=== PATIENT | female | born 1975 | race Caucasian/White ===

== ENCOUNTER 2016-07-07 21:01 | Emergency (ER) | payer OTHER ==
--- NOTE | 2016-07-07 21:42 | ERNOTE ---
Dyspnea - General Presenting Symptoms: shortness of breath Time Seen by Provider: 07/07/16 21:23 Source: patient Exam Limitations: no limitations - Immun/Allergies/Home Medications Immunizations: IMMUNIZATION HX Immunizations Up to Date Yes History of Influenza Vaccine No Hx Pneumococcal Vaccination No Allergies/Adverse Reactions: Allergies acetaminophen [From Percocet] Adverse Reaction (Mild, Verified 07/07/16 21:18) Nausea oxycodone HCl [From Percocet] Adverse Reaction (Mild, Verified 07/07/16 21:18) Nausea Sulfa (Sulfonamide Antibiotics) Adverse Reaction (Mild, Verified 07/07/16 21:18) Hives Home Medications: HOME MEDICATIONS Lisinopril 10 mg PO DAILY 01/01/14 [Last Taken Unknown] Ranitidine HCl [Zantac] 300 mg PO DAILY 01/01/14 [Last Taken Unknown] Sertraline HCl [Zoloft] 50 mg PO DAILY 01/01/14 [Last Taken Unknown] Azelastine/Fluticasone [Dymista Nasal [place]] 1 puff NS BID 01/12/15 [Last Taken Unknown] Cephalexin [Keflex] 500 mg PO TID #21 capsule 03/01/16 [Last Taken Unknown] Methylphenidate HCl [Ritalin] 10 mg PO BID 03/01/16 [Last Taken Unknown] - History of Present Illness Narrative: Pt states she began to have shortness of breath with tightness across her back at the scapula level. She had allergy shots yesterday and has had shortness of breath with them before Severity: moderate Treatment [employer]: none Initiating event: Reports: unknown - possibly allergy shot recieved yesterday Frequency of episodes: Reports: occassional episodes Modifying Factors - (Improves): Reports: rest Modifying Factors (Worsens): Reports: activity Associated Symptoms-Dyspnea: Denies: fever/chills, sweating, chest pain/ discomfort Prior Treatment: Reports: recently seen Review of Systems - Review of Systems Constitutional: Absent: no symptoms reported EYE: Absent: no symptoms reported ENT: Absent: no symptoms reported Respiratory: Present: See HPI, shortness of breath Cardiology: Absent: chest pain Gastrointestinal/Abdominal: Absent: nausea, vomiting Genitourinary: Present: no symptoms reported Musculoskeletal: Present: back pain, muscle pain Skin: Present: rash - around allergy injection site Neurological: Present: no symptoms reported Endocrine: Present: no symptoms reported Hematologic/Lymphatic: Present: no symptoms reported Psych: Present: no symptoms reported - Patient's Past Medical History Patient History - Medical: ADHD, Depression, GERD Patient History - Cardiac/Respiratory: Hypertension, Myocardial Infarction Patient History - Cancer: No Hx of Cancer Patient History - Surgical Procedures: Back Surgery, Other - Social History Living Situations: home Smoking Status: Former smoker Patient requests Smoking Cessation Consult: No Initiate information on Smoking Cessation: No Alcohol Use: rarely Drug Use: none Physical Exam - Physical Exam General Appearance: Present: wd/wn, alert, no apparent distress Eye Exam: Normal inspection: bilateral, PERRL: bilateral Ears, Nose, Throat: Present: normal ENT inspection, hearing grossly normal Neck: Present: normal inspection, nontender Respiratory: Present: no respiratory distress, normal breath sounds, no accessory muscle use, chest nontender, lungs clear Cardiovascular/Chest: Present: regular rate, rhythm, no murmur, normal peripheral pulses Gastrointestinal/Abdominal: Present: nontender Back Exam: Present: no vertebral tenderness Extremity Exam: Present: non-tender, no edema, normal range of motion Neurological Exam: Present: alert, oriented, normal mood/affect, no motor/ sensory deficits Skin Exam: Present: skin rash - 3-4 cm irregular erythematous patch, slightly warm, minimally raised ED Progress - Results and Orders Patient's Lab Results:: I have reviewed the patient's lab results. Results and Orders: Laboratory Tests 07/07/16 07/07/16 21:43 21:43 WBC 10.0 Hgb 13.3 Hct 41.0 Plt Count 267 Sodium 139 Potassium 3.8 Chloride 104 BUN 12 Creatinine 0.66 Random Glucose 125 H Calcium 8.7 AST 8 Alkaline Phosphatase 74 Troponin I Less than 0.017 - Vital Signs Patient's Vital Signs:: I have reviewed the patient's vital signs. Vital Signs: Vital Signs 07/07/16 21:12 Temperature 37.1 C Pulse Rate 94 Respiratory 18 Rate Blood Pressure 167/88 O2 Sat by Pulse 99 Oximetry - X-Ray X-Ray #1 X-Ray: chest Interpretation: Reviewed by me X-ray Comments: No acute abnormalities - Progress/Reassessment Chief Complaint: Dyspnea Departure Clinical Impression: Allergen injection reaction Qualifiers: Encounter type: initial encounter Qualified Code(s): T80.89XA - Other complications following infusion, transfusion and therapeutic injection, initial encounter - Departure Disposition: Home Follow Up Needed Condition: Good Instructions: Allergies, [id number] Additional Instructions: you may try marline 180 mg daily to help reduce the reaction. See your sports physiotherapist if not improving.
[2016-07-07 21:52] LABS: Hemoglobin 13.3 gm/dL (12.5-16.0); Mean Corpuscular Hemoglobin 28.2 pg (27-31); Mean Corpuscular Hgb Conc 32.4 g/dl (32-36); Mean Platelet Volume 9.9 fl (6.0-9.5); Neutrophil % 59.6 % (42-75.0); Platelet Count 267 K/mm3 (150-450); Red Blood Count 4.71 M/mm3 (4.2-5.4); Red Cell Distribution Width 12.1 % (11.5-14.0)
[2016-07-07 22:04] LABS: ALT 27 U/L (19-67); AST 8 U/L (0-48); Albumin * 3.4 gm/dl (3.4-5.0); Alkaline Phosphatase * 74 U/L (50-170); Anion Gap 9.9 mmol/L (6.8-13.8); BUN/Creatinine Ratio 18.2 (9.0-21.6); Bilirubin, Total 0.2 mg/dL (0.0-1.1); Blood Urea Nitrogen 12 mg/dL (3-23); Ca. Corrected For Albumin 8.9 mg/dL (8.4-10.2); Calcium * 8.7 mg/dL (7.9-10.9); Carbon Dioxide 28.9 mmol/L (24-32.6); Chloride 104 mmol/L (97-106); Glucose * 125 mg/dL (70-110); Potassium 3.8 mmol/L (3.4-4.6); Sodium 139 mmol/L (132-142); Total Protein 7.1 gm/dL (6.2-8.2); Troponin I Less than 0.017 ng/ml (0.00-0.10)
[2016-07-08 01:27] VITALS: BP 164/70
== END 2016-07-08 01:58 | disposition home or self-care (01) ==
LOC: ER 21:01
DX: T80.89XA Other complications following infusion, transfusion and therapeutic injection, initial encounter (principal); Z87.891 Personal history of nicotine dependence